=== PATIENT | female | born 1975 | race Caucasian/White ===

== ENCOUNTER 2017-08-30 06:51 | Emergency (ER) | payer OTHER ==
[2017-08-30] MEDS: TETRACAINE 0.5% 4 ML OPH RIGHT EYE (08:38)
== END 2017-08-30 09:58 | disposition left against medical advice (07) ==
LOC: FTE 06:51
DX: H57.11 Ocular pain, right eye (principal); I10 Essential (primary) hypertension; E11.9 Type 2 diabetes mellitus without complications; Z79.84 Long term (current) use of oral hypoglycemic drugs
CPT/HCPCS: 99282; Z7502

== ENCOUNTER 2017-10-14 07:24 | Day surgery (SDC) | payer OTHER ==
[2017-10-14] MEDS ORDERED: ROCURONIUM 50 MG INJ ×2 (10:10→10:31)
[2017-10-14] MEDS ORDERED: LIDOCAINE 2% (SDV) 5 ML INJ ×2 (10:10→10:31)
[2017-10-14] MEDS ORDERED: NEOSTIGMINE 3 MG/3 ML SYRINGE ×2 (10:10→10:31)
[2017-10-14] MEDS ORDERED: PROPOFOL 20 ML ×2 (10:10→10:31)
[2017-10-14] MEDS ORDERED: GLYCOPYRROLATE 0.4 MG INJ ×2 (10:10→10:31)
[2017-10-14] MEDS ORDERED: MIDAZOLAM 1 MG/ML 2 ML INJ (10:11)
[2017-10-14] MEDS ORDERED: FENTAnyl 50 MCG/ML VIAL (10:12)
[2017-10-14] MEDS ORDERED: ONDANSETRON 4 MG INJ (10:34)
[2017-10-14] MEDS ORDERED: DEXAMETHASONE 4 MG/ML 1 ML INJ (10:34)
== END 2017-10-14 13:14 | disposition home or self-care (01) ==
LOC: SDS 07:24
DX: G56.02 Carpal tunnel syndrome, left upper limb (principal); I10 Essential (primary) hypertension; E11.9 Type 2 diabetes mellitus without complications
CPT/HCPCS: 64721; 82962